=== PATIENT | female | born 1965 | race Caucasian/White ===

== ENCOUNTER 2023-10-26 10:07 | Emergency (ER) | payer BC ==
[~2023-10-26] VITALS: Ht 160 cm; Wt 63.5 kg
[~2023-10-26 10:07] MED LIST: AUG875 PO; LISI20TA30 PO; TYC3 PO
[2023-10-26 10:35] VITALS: BP_SYST 141; PULSE 89; RESP 15; TEMP 99.2; O2SAT 94
== END 2023-10-26 14:00 | disposition left against medical advice (07) ==
LOC: SED 10:07
DX: H92.01 Otalgia, right ear (principal); Z53.21 Procedure and treatment not carried out due to patient leaving prior to being seen by health care provider
CPT/HCPCS: 99281